=== PATIENT | male | born 1960 | race Caucasian/White ===

== ENCOUNTER 2021-04-02 00:57 | Day surgery (SDC) | payer BC, SELFPAY ==
[2021-03-26 14:05] VITALS: BMI 27.5
[2021-04-02 10:32] VITALS: BP 116/78; PULSE 44; RESP 18; TEMP 35.9; O2SAT 100; BMI 30.6
[2021-04-02] MEDS: LACTATED RINGERS 1,000 ML 150 ML IV CONT (10:45)
--- NOTE | 2021-04-02 11:16 | WPDGICN ---
Assessment and Plan Assessment and plan (1) History of colon polyps: Code(s): Z86.010 - Personal history of colonic polyps Status: Acute Assessment and Plan: Patient has a history of colon polyps. Surveillance colonoscopies have been performed at 5 year intervals. Plan to proceed with surveillance at this time. Because of prior history of colon polyps. 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 Now on chronic Xarelto anticoagulation. this could be a risk factor for bleeding if polypectomy or biopsies required. Will need to monitor closely. Long-term anticoagulation expected. GI Consult Note Consult date/time: 04/02/21 11:16 HPI: Ziyad Almonte is a 61 year old male Presents for screening colonoscopy. Patient has a prior history of colon polyps. Initially approximately 10 years ago. Follow-up colonoscopy 5 years ago also revealed a small colon polyp. These were both performed in [place]. Patient presents today for surveillance examination. His current weight appetite bowel movements are normal. He denies Abdominal pain. He has had no bleeding. His family history is significant for an aunt who had colon cancer. There are no first-degree relatives who have polyps or cancer. Review of Systems Review of Systems: All systems reviewed & are unremarkable except as noted in HPI and below PMFSH Past Medical History Medical History (Updated 04/02/21 @ 11:18 by Kush Harris MD) H/O deep venous thrombosis on Xarelto Hypothyroid Social History Social History Smoking status: Never smoker Drinks per week: 5 Living arrangements: alone Spiritual care concerns: No Meds Home Medications and Allergies Home Medications Medication Instructions Recorded Confirmed Type levothyroxine [Synthroid] 150 mcg PO DAILY 03/26/21 04/02/21 History rivaroxaban [Xarelto] 10 mg PO DAILY 03/26/21 04/02/21 History rosuvastatin [Crestor] 10 mg PO DAILY 03/26/21 04/02/21 History Allergies Allergy/AdvReac Type Severity Reaction Status Date / Time latex Allergy Hives Verified 04/02/21 10:30 Penicillins Allergy Hives Verified 04/02/21 10:30 Vital Signs Vital Signs - 24 hr 04/02/21 10:32 Temperature 96.6 F L Pulse Rate 44 L Respiratory Rate 18 Blood Pressure 116/78 Pulse Oximetry 100 Exam Narrative: Exam Narrative: Physical exam reveals patient to be alert oriented x3 HEENT exam unremarkable. Patient is anicteric. Lungs are clear to auscultation and percussion. Heart is without murmur or extra sounds. Abdominal exam bowel sounds are present soft nontender with no organomegaly. Digital external rectal exam is normal.
--- NOTE | 2021-04-02 11:21 | P.PNAN_ITS ---
Anes - Initial Pre Proc Eval Procedure: Operation Date: 04/02/21 11:45 Proposed Procedures p Screening Colonoscopy - Kush Harris MD Date/Time: 04/02/21 11:21 Surgeon: Kush Harris MD Pre Op Diagnosis: hx of colon polyps Patient Data Age: 61 Gender: M Height: 1.91 m Weight: 111.1 kg Last Vital Signs Temp 96.6 F L 04/02/21 10:32 Pulse 44 L 04/02/21 10:32 Resp 18 04/02/21 10:32 BP 116/78 04/02/21 10:32 Pulse Ox 100 04/02/21 10:32 Allergies Allergy/AdvReac Type Severity Reaction Status Date / Time latex Allergy Hives Verified 04/02/21 10:30 Penicillins Allergy Hives Verified 04/02/21 10:30 Home Medications Medication Instructions Recorded Confirmed Type levothyroxine [Synthroid] 150 mcg PO DAILY 03/26/21 04/02/21 History rivaroxaban [Xarelto] 10 mg PO DAILY 03/26/21 04/02/21 History rosuvastatin [Crestor] 10 mg PO DAILY 03/26/21 04/02/21 History Patient hx anesthesia problems: none Family hx anesthesia problems: none [facility] Past Medical History Medical History (Updated 04/02/21 @ 11:18 by Kush Harris MD) H/O deep venous thrombosis on Xarelto Hypothyroid Social History Social History Smoking status: Never smoker Drinks per week: 5 Living arrangements: alone Spiritual care concerns: No Anes - Eval Final PreProcedure Day of Procedure 04/02/21 11:21 Patient weight: overweight Heart: regular rate and rhythm Lungs: clear to auscultation Airway: Mallampati scale class II Neurological: alert and oriented Last oral intake: >/= 8 hours ASA classification: II Emergent: no Anesthetic plan: proceed Anesthesia type and monitoring: general GIVS and standard monitoring Informed Consent: The patient's anesthetic plan and its attendant risks and benefits were discussed with the patient/family/POA. Questions were solicited and answers provided to the satisfaction of the patient/family/POA.
[2021-04-02 11:47] VITALS: BP 107/70; PULSE 58; RESP 20; O2SAT 98
[2021-04-02 11:57] VITALS: BP 108/72; PULSE 48; RESP 18; O2SAT 98
[2021-04-02 12:08] VITALS: BP 111/70; PULSE 44; RESP 16; O2SAT 98
== END 2021-04-02 12:32 | disposition home or self-care (01) ==
PROVIDERS: PCP Internal Medicine; Visit Provider Internal Medicine Gastroenterology
PROC: 0DJD8ZZ Inspection of Lower Intestinal Tract, Via Natural or Artificial Opening Endoscopic (ICD-10-PCS; CPT 45378; principal; 2021-04-02 11:45)
DX: Z12.11 Encounter for screening for malignant neoplasm of colon (principal); K63.5 Polyp of colon; K57.30 Diverticulosis of large intestine without perforation or abscess without bleeding; Z79.01 Long term (current) use of anticoagulants; E03.9 Hypothyroidism, unspecified
CPT/HCPCS: 45385; 88305; J2704; J7120